=== PATIENT | female | born 2000 | race African-American/Black ===

== ENCOUNTER 2024-03-31 01:11 | Emergency (ER) | payer OTHER, SELFPAY ==
[2024-03-31 01:17] VITALS: BP 118/70; PULSE 84; RESP 18; TEMP 36.5; O2SAT 100; BMI 24.5
--- NOTE | 2024-03-31 01:42 | DI.RAD.S_ITS ---
PROCEDURE: XR HUMERUS LT 2V INDICATIONS: fall with injury, pain TECHNIQUE: 2 views of the humerus were acquired. COMPARISON: None. FINDINGS: Bones: No fractures or dislocations. No suspicious bony lesions. Soft tissues: No suspicious soft tissue calcifications. Contraceptive device in the soft tissues of the inner arm. IMPRESSION: No acute bony abnormality. Agree with preliminary report. Dictated by: Adriano Valle M.D. on 03/31/2024 at 8:55 Approved by: Adriano Valle M.D. on 03/31/2024 at 8:56
--- NOTE | 2024-03-31 01:43 | DI.RAD.S_ITS ---
PROCEDURE: XR RIBS LT 2V INDICATIONS: fall with injury and pain TECHNIQUE: 2 views of the ribs were acquired. COMPARISON: None. FINDINGS: Surgical changes and devices: None. Bones and chest wall: No fractures or dislocations. No suspicious bony lesions. Overlying soft tissues appear unremarkable. Lungs and pleura: The visualized lung appears clear. No pleural effusions or pneumothorax are visible. IMPRESSION: No displaced rib fracture. Dictated by: Adriano Valle M.D. on 03/31/2024 at 8:57 Approved by: Adriano Valle M.D. on 03/31/2024 at 8:57
--- NOTE | 2024-03-31 01:43 | DI.RAD.S_ITS ---
PROCEDURE: XR SHOULDER LT MIN 2V INDICATIONS: fall with injury, pain TECHNIQUE: 2 views of the shoulder were acquired. COMPARISON: None. FINDINGS: Bones: No fractures or dislocations. No suspicious bony lesions. Visualized ribs appear intact. Soft tissues: No suspicious soft tissue calcifications. IMPRESSION: No acute bony abnormality. Dictated by: Adriano Valle M.D. on 03/31/2024 at 8:56 Approved by: Adriano Valle M.D. on 03/31/2024 at 8:57
[2024-03-31] MEDS: ACETAMINOPHEN 325 MG TABLET 975 MG PO (02:07)
--- NOTE | 2024-03-31 02:31 | ED_ITS ---
HPI - Extremity Injury (Upper) General Chief Complaint: Extremity Injury, Upper Stated Complaint: fall, left arm pain Time Seen by Provider: 03/31/24 02:26 Source: patient, RN notes reviewed and old records reviewed Mode of arrival: Ambulatory Limitations: no limitations History of Present Illness HPI narrative: 23-year-old female no reported medical issues patient was working at the [employer] had a slip and fell off of jet was about 7 ft off the ground landed hitting her left side on the job but also in the ground. She states she was quite a bit of pain humeral area elbow forearm particularly with any kind of movement. She can move her shoulder and elbow but states it is very uncomfortable. Denies any new weakness. Denies any head injury does state she had had protection on, no neck pain, little bit of back discomfort but no midline pain. No chest pain or shortness of breath otherwise. No pain with deep inhalation. No nausea or vomiting. No GI or urinary symptoms. States it happened shortly prior to arrival. States no daily medications. Denies any allergies to medications. No regular tobacco, alcohol or recreational drugs reported. Review of Systems Review of Systems ROS Unobtainable: All systems reviewed & are unremarkable except as noted in HPI and below Exam Narrative Exam Narrative: GENERAL: Alert and oriented x three, female in [id number] distress HEENT: Head normocephalic, atraumatic, EOMI, pupils reactive, face symmetric, moist mucous membranes NECK: Supple, full range of motion CARDIOVASCULAR: Regular rate and rhythm without murmurs, rubs or gallops. RESPIRATORY: Breath sounds equal bilaterally, no wheezes rales or rhonchi. ABDOMEN: Soft, nontender. Normoactive bowel sounds all 4 quadrants. No guarding or rebound, rigidity, no mass BACK: No cervical, thoracic or lumbar vertebral point tenderness. Patient has normal range of motion. Patient's gait is normal. EXTREMITIES: Range of motion except for the left upper extremity patient has some tenderness over the shoulder but good movement, has tenderness over the humerus as well as elbow and distal wrist. No obvious deformity, no ecchymosis or skin changes. 2+ radial pulse. Cap refill less than 2 seconds all NEUROLOGICAL: Cranial nerves II through XII grossly intact. Moving all extremities SKIN: Warm, dry, no petechiae, no rashes or lesions. Initial Vital Signs Initial Vital Signs: Vital Signs Temperature 97.7 F 03/31/24 01:17 Pulse Rate 84 03/31/24 01:17 Respiratory Rate 18 03/31/24 01:17 Blood Pressure 118/70 03/31/24 01:17 Pulse Oximetry 100 03/31/24 01:17 Oxygen Delivery Method Room Air 03/31/24 01:17 Course Orders Ordered: ED Orders 03/31/24 01:42 XR humerus LT 2V Stat 03/31/24 01:43 XR ribs LT 2V Stat XR shoulder LT min 2V Stat 03/31/24 03:06 XR elbow LT min 3V Stat XR wrist LT min 3V Stat Discontinued Medications Acetaminophen (Acetaminophen 325 Mg Tablet) 975 mg PO NOW ONE Stop: 03/31/24 02:02 Last Admin: 03/31/24 02:07 Dose: 975 mg Documented By: Tramadol HCl (Tramadol 50 Mg Prepack) 1 bottle MISC DIRECTED ONE Stop: 03/31/24 04:38 Last Admin: 03/31/24 04:43 Dose: 1 bottle Documented By: DANK Vital Signs Vital signs: Vital Signs - 8 hr 03/31/24 01:17 03/31/24 04:53 Temperature 97.7 F Pulse Rate 84 80 Respiratory Rate 18 16 Blood Pressure 118/70 117/70 Pulse Oximetry 100 98 Oxygen Delivery Method Room Air Room Air MDM - Extremity Injury (Upper) Imaging Data Extremity x-ray #1: Radiologist's Impression: Normal left shoulder x-ray MDM Narrative Medical decision making narrative: 23-year-old female with a fall about 7 ft onto her left arm. She was generalized tenderness throughout. Patient appears quite uncomfortable has had little bit increased movement here in the department discussed with the patient give a sling but can use her arm normally if she prefers. Follow up in 7-10 days for recheck if no improvement. Left shoulder x-ray shows no acute change Rib x-ray no acute cardiopulmonary abnormality no rib fracture. Humerus x-ray shows no acute change elbow xray shows no acute change wrist xray no acute change Discharge Plan Departure Patient Disposition: Home Clinical Impression: Arm pain, left, Fall Instructions: DI for Arm Pain Activity Restrictions/Additional Instructions: Please follow up in the next week for recheck if you are not having any improvement your symptoms. Call to set up an appointment with your physician. Your x-ray imaging did not show any obvious breaks of your bones. You can take acetaminophen up to a 1000 mg every 6 hours and/or ibuprofen up to 600 mg every 6 hours as needed for pain. If inadequate for pain you can take tramadol 1-2 tablets every 6 hours as needed. This medication can make you sleepy do not drive, perform hazardous activities or make any major decisions while taking it. This medication will make you constipated please take a stool softener once to twice daily until stools are soft and regular. You can use the sling as needed. If your pain resolves you do not have to continue to use the sling. Splint Care: Keep splint clean and dry. Elevated affected body part to decrease swelling. OK to use ice pack on the affected body part. Use for 15-20 minutes each time, for 5-6x per day. If you develop worsening pain, numbness, tingling, discoloration of the affected body part, adjust the sling as needed and either see your doctor for an urgent re-assessment, or return to the Emergency Department. Return to the Emergency Department for any new or worsening symptoms. Referrals: ProviderHuang [Primary Care Provider] - Stand Alone Forms: Patient Portal/API/Survey, Work Release Note
--- NOTE | 2024-03-31 03:06 | DI.RAD.S_ITS ---
PROCEDURE: XR ELBOW LT MIN 3V INDICATIONS: pain fall from 7 ft, elbow forearm TECHNIQUE: 3 views of the elbow were acquired. COMPARISON: None. FINDINGS: Bones: No fractures or dislocations. No suspicious bony lesions. Soft tissues: No elbow joint effusion. No suspicious soft tissue calcifications. IMPRESSION: No acute elbow fracture or dislocation. No significant joint effusion. No discrepancies. Dictated by: Carlos Alberto Newton M.D. on 03/31/2024 at 8:32 Approved by: Carlos Alberto Newton M.D. on 03/31/2024 at 8:32
--- NOTE | 2024-03-31 03:06 | DI.RAD.S_ITS ---
PROCEDURE: XR WRIST LT MIN 3V INDICATIONS: pain fall from 7 ft, elbow forearm TECHNIQUE: 4 views of the wrist were acquired. COMPARISON: None. FINDINGS: Bones: No fractures or dislocations. No suspicious bony lesions. Soft tissues: No suspicious soft tissue calcifications. IMPRESSION: No acute wrist fracture or dislocation. No discrepancies. Dictated by: Carlos Alberto Newton M.D. on 03/31/2024 at 8:32 Approved by: Carlos Alberto Newton M.D. on 03/31/2024 at 8:33
--- NOTE | 2024-03-31 03:48 | PC.NURSE ---
Pt ambulatory to imaging with imaging assistant
[2024-03-31] MEDS: TRAMADOL 50 MG PREPACK 1 BOTTLE MISC (04:43)
[2024-03-31 04:53] VITALS: BP 117/70; PULSE 80; RESP 16; O2SAT 98
== END 2024-03-31 04:53 | disposition home or self-care (01) ==
PROVIDERS: Emergency Provider Emergency Medicine
DX: M79.602 Pain in left arm (principal); S49.92XA Unspecified injury of left shoulder and upper arm, initial encounter; R07.81 Pleurodynia
CPT/HCPCS: 71100; 73030; 73060; 73080; 73110; 99283; 99284